=== PATIENT | male | born 1945 | race Caucasian/White ===

== ENCOUNTER 2016-06-13 12:12 | Inpatient (IN) | payer MEDICARE ==
[~2016-06-13] VITALS: Ht 180.3 cm; Wt 102.7 kg
--- NOTE | ~2016-06-13 | CO ---
ADMIT: 06/13/2016 RM/LOC: 425 [facility] MR#: [id number] [id number] [place], [place] [address] ISAIAS PATEL [address] [place] [address] Consultation SEX: M AGE: 70 : 1945 Corrected: 06/14/2016 1430 augustine DATE OF CONSULTATION: 06/14/2016 ATTENDING PHYSICIAN: Marc Culver CONSULTING PHYSICIAN: Ernesto Hammer MD REASON FOR CONSULTATION: Right elbow pain. HISTORY OF PRESENT ILLNESS: The patient is a pleasant 70-year-old male, who on Friday was by the couch, kind of took a fall. He is walker dependent, injuring his his right elbow. He was actually brought into the hospital last night for other medical issues. He was sent to the ICU for septic protocol. He did not qualify for sepsis. He is up on the floor 4 now. He had x-rays done of the forearm, which they thought he had a radial head fracture. We did go ahead and have them remove his splint and re-x-rayed his elbow getting dedicated AP and lateral elbow x-rays. The patient denies any other injuries during the fall. Complains of pain about the elbow mostly on the lateral aspect here. PAST MEDICAL HISTORY: As per primary care's history and physical. MEDICATIONS: As per primary care's history and physical. ALLERGIES: PER PRIMARY CARE'S HISTORY AND PHYSICAL. REVIEW OF SYSTEMS: As per primary care's history and physical. PHYSICAL EXAMINATION: Examination of the right elbow, may be just a mild amount of swelling. Tender to palpation over the radial head. He has pretty good flexion and extension, probably lacks about 10 degrees of extension. Currently, he is able to pronate and supinate well. No bony block, but does have discomfort and pain with this. No real tenderness to palpation anywhere else about the elbow except over the radial head. He is otherwise distally neurovascularly intact. X-RAYS: We did review the dedicated elbow views AP and lateral, which do appear to show nondisplaced radial neck type fracture here. ADMIT: 06/13/2016 RM/LOC: 425 [facility] MR#: [id number] [address] [address] ISAIAS PATEL [address] [place] [address] Consultation SEX: M AGE: 70 : 1945 ASSESSMENT: Right radial neck fracture. PLAN: At this point, we will discontinue his splint, treat him in a sling, have therapy come up and do some elbow range of motion exercises with him. He can start doing these at home on his own, active range of motion. Otherwise, keep the sling on for comfort. Ice to the area. No weightbearing through the right upper extremity. We will have him get a platform for his walker. We will check him back at the office in 10 to 14 days and get another x-ray and see how things are going from that point. Ernesto Hammer MD/ ross JOB #: [id number] CC: Marc Culver, Attending Physician Marc Culver, Family Physician Corrected: 06/14/2016 1430 augustine
--- NOTE | ~2016-06-13 | HP ---
ADMIT: 06/13/2016 RM/LOC: 425 [facility] MR#: [id number] [address] [place], [place] [address] ISAIAS PATEL [address] [place] [address] History and Physical SEX: M AGE: 70 : 1945 DATE OF SERVICE: CHIEF COMPLAINT AND HISTORY OF THE PRESENT ILLNESS: This 70-year-old male fell at home and a day later he came to the emergency room because of continued arm pain. He was found to have a right radial fracture and is admitted for further evaluation. The patient has had increasing falling spells at home, requiring the ambulance service to come out and lift him. He has had no syncope with these episodes and there was no loss of consciousness. No headaches. No change in vision. These are not usually accompanied by hypoglycemia. He is unable to bear weight with his arms because they require the sling. PREVIOUS MEDICAL HISTORY: Generally, his health has been fair. He has had osteoarthritis. His primary problem has been that of CVA with hemiparesis. He has had falling spells. He has had insulin-dependent diabetes mellitus. He has also had hypertension, hypercholesterolemia, obesity. He has diabetic neuropathy. MEDICATIONS: 1. Simvastatin 10 mg daily. 2. Vitamin C 500 mg daily. 3. Aspirin 325 mg daily. 4. Amlodipine 10 mg daily. 5. Metoprolol 50 mg daily. 6. Ramipril 20 mg daily. 7. Colestipol 1 g t.i.d. 8. Novolin 70/30, 60 units b.i.d. 9. Tolterodine 4 mg daily. 10.Duloxetine 60 mg daily. 11.Glyburide/metformin 11/999 mg b.i.d. ALLERGIES: NONE. SOCIAL HISTORY: The patient is . A retired pharmacist. He has a remote history of smoking, but has not smoked in years. He takes an occasional cocktail. FAMILY HISTORY: Reveals ischemic heart disease and diabetes. PAST SURGICAL HISTORY: Carotid endarterectomy, cholecystectomy. He has had right knee surgery. He has had right hip pinning. REVIEW OF SYSTEMS: HEENT: The patient has worn glasses. He has no hearing loss or headaches. He has had bilateral cataracts. CARDIORESPIRATORY: No ischemic heart disease or congestive heart failure. He has had edema. Previous syncope. No history of pulmonary emboli or deep vein thrombophlebitis. He has had hypertension. GASTROINTESTINAL: No nausea, vomiting, constipation, bloody stools, or diarrhea. ADMIT: 06/13/2016 RM/LOC: 425 [facility] MR#: [id number] [address] [id number] [place] [address] History and Physical SEX: M AGE: 70 : 1945 GENITOURINARY: No hematuria or dysuria. The patient did have a mildly elevated creatinine, but no history of nephrotic syndrome. METABOLIC/ENDOCRINE: The patient has insulin-dependent diabetes mellitus. He also has hypercholesterolemia. His thyroid has been normal. NEUROLOGIC: The patient has had a previous CVA and endarterectomy. PHYSICAL EXAMINATION: VITAL SIGNS: Blood pressure is 137/68, pulse was 60 and regular, respirations 16. GENERAL: The patient is an overweight male, who is alert, cooperative, oriented x3. HEENT: Head - normocephalic without exostoses. DAILY. Throat within normal limits. NECK: Neck veins not distended. Thyroid not enlarged. CHEST: Clear to percussion and auscultation. HEART: Regular rhythm with no murmur heard. No clinical evidence of cardiomegaly. ABDOMEN: Soft, nontender. Liver is not enlarged. Spleen is not palpable. No abnormal masses are palpated. Femoral pulses are strong and equal bilaterally. GENITALIA: Normal. EXTREMITIES: The patient has pain in his right elbow area. He has also had 1+ edema. ASSESSMENT: 1. Right elbow fracture. 2. Brittle diabetes with hypoglycemia, insulin dependent. 3. Hypercholesterolemia. 4. Falling spells. 5. Status post cerebrovascular accident with residual hemiparesis. 6. Obesity. 7. Diabetic neuropathy. Marc Culver MD/ ross JOB #: [id number] CC: Marc Culver, Attending Physician Marc Culver, Family Physician
--- NOTE | 2016-06-18 16:04 | ER ---
ADMIT: 06/13/2016 RM/LOC: [address] [facility] MR#: [id number] [id number] [place], [place] [address] ISAIAS PATEL [address] [place] [address] Emergency Room Report SEX: M AGE: 70 : 1945 DATE: 06/13/2016 ADDENDUM: A 70-year-old white male coming in with gait instability and falling, weakness. He has had a stroke in the past. He has diabetes, hypertension, hyperlipidemia. We worked him up as a sepsis, x-rayed his right forearm. At this time, he has a radial head fracture that we put a splint on, a posterior splint keeps him intact. We also worked him up as a rule out sepsis. However, his white count is 14,000. He has a glucose of 401. He is diabetic, creatinine 1.8, and he had a lactate of 5.5. Owing to the fact that lactate greater than 4, gait instability, overall weakness, we started the sepsis treatment. We did give him 30 mL/kg of fluid, put him on Zosyn. His urine was negative, so we have not found a source. A chest x-ray had been done as well and that has not shown the source as well. At this time essentially he has weakness, gait instability, and a sepsis patient until proven otherwise. I spoke with Dr. Nielsen who is covering for Dr. Culver. CONDITION ON DISCHARGE: Serious, but stable. Garret Perkins MD/ corazonl JOB #: [id number] CC: Marc Culver MD, Attending Physician Marc Culver MD, Family Physician
--- NOTE | 2016-06-19 11:37 | DS ---
ADMIT: 06/13/2016 RM/LOC: 425 [facility] MR#: [id number] [address] [place], [place] [address] JORGE ISAIAS Becker [address] [place] [address] Discharge Summary SEX: M AGE: 70 : 1945 ADMISSION DATE: 06/13/2016 DISCHARGE DATE: 06/18/2016 HISTORY AND PHYSICAL: Please see the chart. LABORATORY AND X-RAY DATA: Please see the chart. CLINICAL COURSE: This 70-year-old male was admitted to the hospital following a fall at home with a fractured elbow. The patient had been having increasing falling spells and was seen by the Orthopedic surgeons. The patient was placed in a splint and had difficulty because from his previous stroke he has weakness of his legs, has difficulty walking, he has had falling episodes repeatedly even in the last two weeks and he has had to have the fire department come up and help him up. Now he has a fractured elbow and is able to support himself and he has had difficulty with ambulation. A CT scan was done which showed some atrophy and one possibility was normal pressure hydrocephalus. The neurosurgeons were asked to see the patient in consultation. A spinal tap was done which showed normal opening and closing pressures and the patient will be able to be followed up in the neurosurgeon's office in one week. The patient's blood sugars were quite brittle. He had sugars in the 40s and 50s. He also had sugars in the 400s. His insulin dose was changed. At the time of discharge, his blood sugar was still mildly elevated but at least they were out of the extremes and can be followed in the assisted. His blood pressure was also elevated. His blood pressure medication was adjusted and this also will be followed in a assisted. The patient is transferred to [facility]. He will need physical therapy, occupational therapy to try and ambulate, also to monitor his blood sugars and his blood pressure. DISCHARGE MEDICATIONS: 1. Colestid. 2. Glucophage 1000 mg b.i.d. 3. Micronase 10 mg b.i.d. 4. Norvasc 10 mg daily. 5. Vasotec 10 mg daily. 6. Zocor 10 mg daily. ADMIT: 06/13/2016 RM/LOC: 425 [facility] MR#: [id number] [address] [address] ISAIAS PATEL [address] [place] [address] Discharge Summary SEX: M AGE: 70 : 1945 7. Novolin 70/30 at 50 units b.i.d. 8. He was placed on aspirin 325 mg daily. FINAL DIAGNOSIS: 1. Acute right fractured right elbow. 2. Unstable insulin-dependent diabetes mellitus with hypoglycemic episodes. 3. 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 4. Hypertension. 5. Hypercholesterolemia. 6. Status postop CVA (cerebrovascular accident) with weakness and impaired gait. 7. Diabetic peripheral neuropathy. Marc Culver MD/ vdg JOB #: [id number] CC: Marc Culver MD, Attending Physician Marc Culver MD, Family Physician
[2016-06-20] MEDS ORDERED: GLUCOPHAGE-DPS500 MG PO (08:55)
[2016-06-20] MEDS ORDERED: MICRONASE DPS5 MG PO (08:55)
[2016-06-20] MEDS ORDERED: COLESTID1 GM PO (08:55)
[2016-06-20] MEDS ORDERED: NOVOLIN 70100 UNITS/ SQ (08:56)
[2016-06-20] MEDS ORDERED: NORVASC DPS10 MG PO (08:56)
[2016-06-20] MEDS ORDERED: ZOCOR DPS10 MG PO (08:56)
[2016-06-20] MEDS ORDERED: VASOTEC DPS10 MG PO (08:56)
[2016-06-20] MEDS ORDERED: ASA325 MG PO (08:57)
[2016-06-20] MEDS ORDERED: ALTACE DPS10 MG PO (09:02)
--- NOTE | 2016-07-02 12:24 | CO ---
ADMIT: 06/13/2016 RM/LOC: 425 [facility] MR#: [id number] [address] [place], [place] [address] ISAIAS PATEL [address] [place] [address] Consultation SEX: M AGE: 70 : 1945 Corrected: 06/14/2016 1345 augustine DATE OF CONSULTATION: 06/14/2016 ATTENDING PHYSICIAN: Marc Culver CONSULTING PHYSICIAN: Ernesto Hammer MD CHIEF COMPLAINT: Right elbow fracture. HISTORY OF PRESENT ILLNESS: This is a 70-year-old male I am seeing at the request of Dr. Nielsen and Dr. Culver for complaint of right elbow injury. He had a fall on Friday. He has been admitted to the hospital for these falls. Reported when he fell on Friday, he does not recall exactly how he fell, but his dog may have tripped him. It went down onto his right arm. He had pain and stiffness. Since that admission, he did complain about his elbow pain. So x- rays obtained of the forearm showed a nondisplaced radial neck fracture. He is placed into a splint and an orthopedic consultation was requested. He has no prior history of injury to his elbow that he can recall. Allergies, medications, past medical history, social history, and review of systems are all noted in the admission H and P by primary care and will not be repeated here. PHYSICAL EXAMINATION: GENERAL: This is an otherwise comfortable appearing 70- year-old male, who has no distress. He is oriented, pleasant, interactive, answers questions appropriately. He is seen in the ICU room 316. He is lying comfortably in his bed. MUSCULOSKELETAL: Exam of the right elbow shows that his skin is intact. He had no acute findings about the skin. He has mild swelling and very small joint effusion about the elbow. Range of motion is comfortable only to -15 degrees and flexion to about 95 and limited by stiffness and soreness. He has tenderness with palpation directly over the radial head and neck. He has soreness with pronation and supination. He does have active flexion and extension mechanism and pronation and supination mechanisms, but they are sore distally. His neurovascular status is intact. He has no gross deformity. He has stable ligaments. I reviewed previously obtained x-rays of the forearm and new x-rays of the elbow. They do both show a nondisplaced radial neck fracture, just in the subcapital area joint surface. The radial head did not appear to be involved. It is very stable. No other evidence of fracture along the radius and ulna. ADMIT: 06/13/2016 RM/LOC: 425 [facility] MR#: [id number] [address] [address] ISAIAS PATEL [facility] [place] [place] [address] Consultation SEX: M AGE: 70 : 1945 ASSESSMENT: Right radial neck fracture, nondisplaced. PLAN: We are going to have him remain out of his splint. He can use his sling for comfort. We will nonweightbear him through the forearm. He can use his platform walker for ambulation due to his recent falls. He can have motion to tolerance. He will use, again, the sling as needed for comfort. We will recheck him in a week or two in the office for re-evaluation and re-x-ray. Considering starting him on physical therapy at some point as this continues to heal. He should do very well nonoperatively. We will continue to follow him. Contact us with questions. Tony Palma PA-C / Ernesto Hammer MD / ross JOB #: [id number] CC: Marc Culver, Attending Physician Marc Culver, Family Physician Corrected: 06/14/2016 1345 augustine
[2016-08-01] MEDS ORDERED: ASCORBIC ACID500 MG PO (20:20)
[2016-08-01] MEDS ORDERED: ZOCOR DPS10 MG PO (20:20)
[2016-08-01] MEDS ORDERED: NORVASC DPS10 MG PO (20:21)
[2016-08-01] MEDS ORDERED: ASPIRIN325 MG PO (20:21)
[2016-08-01] MEDS ORDERED: ALTACE DPS10 MG PO (20:21)
[2016-08-01] MEDS ORDERED: TOPROL XL DPS50 MG PO (20:21)
[2016-08-01] MEDS ORDERED: NOVOLOG MI100 UNITS/ SQ (20:22)
[2016-08-01] MEDS ORDERED: NOVOLIN 70100 UNITS/ SQ (20:22)
[2016-08-01] MEDS ORDERED: COLESTID1 GM PO (20:22)
[2016-08-01] MEDS ORDERED: GLUCOVANCE 5/501 TAB PO (20:23)
[2016-08-01] MEDS ORDERED: DETROL LA DPS4 MG PO (20:23)
[2016-08-01] MEDS ORDERED: CYMBALTA60 MG PO (20:23)
[2016-08-01] MEDS ORDERED: ULTRAM DPS50 MG PO (20:24)
== END 2016-06-18 14:40 | DRG 57 ==
LOC: ER 12:12 → 3ICU 17:32 → 4PCU 17:32
DX: G91.2 (Idiopathic) normal pressure hydrocephalus (principal); E11.40 Type 2 diabetes mellitus with diabetic neuropathy, unspecified; E11.649 Type 2 diabetes mellitus with hypoglycemia without coma; I69.359 Hemiplegia and hemiparesis following cerebral infarction affecting unspecified side; S52.134A Nondisplaced fracture of neck of right radius, initial encounter for closed fracture; I10 Essential (primary) hypertension; E78.5 Hyperlipidemia, unspecified; W19.XXXA Unspecified fall, initial encounter; M19.90 Unspecified osteoarthritis, unspecified site; E78.00 Pure hypercholesterolemia, unspecified; E66.9 Obesity, unspecified; Z87.891 Personal history of nicotine dependence; Z82.49 Family history of ischemic heart disease and other diseases of the circulatory system; Z91.81 History of falling; Z79.4 Long term (current) use of insulin